=== PATIENT | male | born 1960 | race Caucasian/White ===

== ENCOUNTER 2016-12-09 12:19 | Emergency (ER) | payer OTHER ==
[~2016-12-09] VITALS: Ht 188 cm; Wt 111.8 kg
[~2016-12-09 12:19] MED LIST: ADULT LOW STREN81 M2 PO; AMLODIPINE BESY10 MG PO; Ceftin PO; DILAUDID2 MG PO; FLEXERIL10 MG; FLEXERIL10 MG PO; FORTAMET500 M1 PO; Flexeril PO; HYDROCHLOROTHIA25 MG PO; KEFLEX750 MG PO; LISINOPRIL20 MG PO; LISINOPRIL40 MG PO; MOTRIN600 MG PO; NORVASC5 MG PO; OXYCODONE10 MG; PHENERGAN25 MG PR; PRINZIDE 20-251 EACH PO; PROMETHAZINE HC25 M1 PO; ZOFRAN ODT4 MG PO
[2016-12-09] MEDS ORDERED: AUGMENTIN875 MG PO (13:59)
[2016-12-09] MEDS ORDERED: FENTANYL1 EAC5 TD (14:16)
[2016-12-09] MEDS ORDERED: OXYCODONE HCL30 MG PO (14:16)
[2016-12-09 15:18] VITALS: BP 153/94
== END 2016-12-09 15:18 | disposition home or self-care (01) ==
LOC: EME 12:19 → RME 12:19
DX: K02.9 Dental caries, unspecified (principal); Z88.4 Allergy status to anesthetic agent
CPT/HCPCS: 99281; 99284; J1885

== ENCOUNTER 2017-05-19 20:46 | Emergency (ER) | payer OTHER ==
[~2017-05-19] VITALS: Ht 188 cm; Wt 116.5 kg
[~2017-05-19 20:46] MED LIST changes: +AUGMENTIN875 MG PO; +FENTANYL1 EAC5 TD; +OXYCODONE HCL30 MG PO
[2017-05-19 21:24] VITALS: BP 156/89
== END 2017-05-19 21:59 | disposition home or self-care (01) ==
LOC: EXP 20:46 → EME 20:46 → EXP 21:59
DX: Z76.0 Encounter for issue of repeat prescription (principal); G89.29 Other chronic pain
CPT/HCPCS: 99281; 99283